=== PATIENT | male | born 1955 | race American Indian/Alaskan Native ===

== ENCOUNTER 2018-09-27 01:06 | Emergency (ER) | payer MEDICAID ==
--- NOTE | 2018-09-27 02:22 | ED PDOC ---
HPI: Altered Mental Status Chief Complaint (Provider): altered mental status History Per: EMS History/Exam Limitations: Clinical Condition Additional Complaint(s): 62 y/o male brought in by EMS for altered mental status. Patient was found walking the streets dishelved, confused. Patient is able to provide his name and states he lives at [facility] in [place]. <Tatiana Sutherland - Last Filed: 09/27/18 05:22> <Radha Miranda - Last Filed: 09/27/18 07:26> Time Seen by Provider: 09/27/18 01:48 Chief Complaint (Nursing): Altered Mental Status Past Medical History Reviewed: Historical Data, Nursing Documentation, Vital Signs Vital Signs: Last Vital Signs Temp 98.1 F 09/27/18 01:11 Pulse 86 09/27/18 01:11 Resp 18 09/27/18 01:11 BP 138/88 09/27/18 01:11 Pulse Ox 100 09/27/18 01:11 - Family History Family History: States: Unknown Family Hx <Tatiana Sutherland - Last Filed: 09/27/18 05:22> Vital Signs: Last Vital Signs Temp 98.3 F 09/27/18 06:35 Pulse 64 09/27/18 06:35 Resp 13 09/27/18 06:35 BP 110/58 L 09/27/18 06:35 Pulse Ox 99 09/27/18 07:18 <Radha Miranda - Last Filed: 09/27/18 07:26> - Allergies Allergies/Adverse Reactions: Allergies Allergy/AdvReac Type Severity Reaction Status Date / Time Unobtainable Allergy Verified 09/27/18 01:49 Review of Systems ROS Statement: Except As Marked, All Systems Reviewed And Found Negative <Tatiana Sutherland - Last Filed: 09/27/18 05:22> Physical Exam - Reviewed Nursing Documentation Reviewed: Yes Vital Signs Reviewed: Yes - Physical Exam Appears: Positive for: Well, Non-toxic, Uncomfortable (unkempt) Head Exam: Positive for: ATRAUMATIC, NORMAL INSPECTION, NORMOCEPHALIC Skin: Positive for: Normal Color Eye Exam: Positive for: Normal appearance ENT: Positive for: Normal ENT Inspection Cardiovascular/Chest: Positive for: Regular Rate, Rhythm Respiratory: Positive for: Normal Breath Sounds Gastrointestinal/Abdominal: Positive for: Normal Exam Back: Positive for: Normal Inspection Extremity: Positive for: Normal ROM Neurologic/Psych: Positive for: Alert, Oriented (x2) <Tatiana Sutherland - Last Filed: 09/27/18 05:22> - Laboratory Results Result Diagrams: 09/27/18 03:40 09/27/18 03:40 - ECG ECG: Positive for: Viewed By Me (reviewed by ED attending) ECG Rhythm: Positive for: Sinus Rhythm O2 Sat by Pulse Oximetry: 100 - Progress ED Course And Treament: Patient agitated, attempting to elope and swinging at staff Security at bedside, de-escalation unsuccessful; patient restrained and medicated for acute agitation/safety -accucheck -cop breaker -ekg -cxr -cbc -cmp -alcohol -urinalysis -urine drug screen -CT head CT SCAN OF THE BRAIN WITHOUT IV CONTRAST CLINICAL INDICATION: Altered mental status. TECHNIQUE: Axial and reformatted sagittal and coronal images of the brain obtained without IV contrast administration. Normal size of the ventricles and extra-axial spaces for the patient's age. Normal white matter tracts of the supratentorial brain. Normal basal ganglia and thalami. Normal brainstem. Normal cerebellum. There is no demonstrated extra-axial, intraparenchymal, or intraventricular hemorrhage. There are no findings of an acute ischemic infarction. Normal calvarium. There is no demonstrated fracture. Normal soft tissue structures. Moderate chronic mucosal inflammatory changes of the visualized paranasal sinuses. IMPRESSION: Normal unenhanced CT scan of the brain. Moderate chronic mucosal inflammatory changes of the visualized paranasal sinuses Kaycee Morrison contacted by charge nurse, who stated no one there overnight who would be able to provide medical history on patient and to call back in am 3:30 Patient sleeping; vitals stable on monitor 5:00 Patient sleeping; vital stable on monitor <Tatiana Sutherland C - Last Filed: 09/27/18 05:22> - Laboratory Results Result Diagrams: 09/27/18 03:40 09/27/18 03:40 Lab Results: Total Bilirubin 0.4 mg/dl (0.2-1.3) 09/27/18 03:40 AST 115 U/L (17-59) H 09/27/18 03:40 ALT 46 U/L (21-72) 09/27/18 03:40 Alkaline Phosphatase 100 U/L (38-126) 09/27/18 03:40 Total Protein 7.6 G/DL (6.3-8.2) 09/27/18 03:40 Albumin 3.9 g/dL (3.5-5.0) 09/27/18 03:40 Globulin 3.8 gm/dL (2.2-3.9) 09/27/18 03:40 Albumin/Globulin Ratio 1.0 (1.0-2.1) 09/27/18 03:40 Urine Color Yellow (YELLOW) 09/27/18 03:40 Urine Clarity Slighty-cloudy (Clear) 09/27/18 03:40 Urine pH 5.0 (5.0-8.0) 09/27/18 03:40 Ur Specific [place] 1.031 (1.003-1.030) H 09/27/18 03:40 Urine Protein 30 mg/dL (NEGATIVE) 09/27/18 03:40 Urine Glucose (UA) Neg mg/dL (NEGATIVE) 09/27/18 03:40 Urine Ketones Trace mg/dL (NEGATIVE) 09/27/18 03:40 Urine Blood Negative (NEGATIVE) 09/27/18 03:40 Urine Nitrate Negative (NEGATIVE) 09/27/18 03:40 Urine Bilirubin Negative (NEGATIVE) 09/27/18 03:40 Urine Urobilinogen 2.0 mg/dL (0.2-1.0) 09/27/18 03:40 Ur Leukocyte Esterase Neg Willy/uL (Negative) 09/27/18 03:40 Urine RBC (Auto) 1 /hpf (0-3) 09/27/18 03:40 Urine Microscopic WBC 1 /hpf (0-5) 09/27/18 03:40 Hyaline Casts 3-5 /hpf (0-2) H 09/27/18 03:40 <Radha Miranda - Last Filed: 09/27/18 07:26> Medical Decision Making Medical Decision Makin Patient signed out to Dr. Rendon, pending crisis evaluation, return to baseline and confirm safe return to housing facility in [place]. Scribe Attestation: Documented by Norma Calix, acting as a scribe for Radha Miranda MD. Provider Scribe Attestation: All medical record entries made by the Scribe were at my direction and personally dictated by me. I have reviewed the chart and agree that the record accurately reflects my personal performance of the history, physical exam, medical decision making, and the department course for this patient. I have also personally directed, reviewed, and agree with the discharge instructions and disposition. <Radha Miranda - Last Filed: 09/27/18 07:26> Disposition - Disposition Disposition Time: 06:00 Patient Signed Over To: Radha Miranda Handoff Comments: pending crisis eval <Tatiana Sutherland - Last Filed: 09/27/18 05:22> <Radha Miranda - Last Filed: 09/27/18 07:26> - Clinical Impression Clinical Impression: Altered mental status - Disposition Condition: STABLE Forms: [employer] (Albanian)
[2018-09-27 04:00] LABS: BASO % 0.4 % (0.0-2.0); EOS % 0.6 % (0.0-4.0); HEMOGLOBIN 11.8 g/dL (12.0-18.0); LYMPH # 0.9 K/uL (1.0-4.3); MEAN CELL VOLUME 83.1 fl (80.0-94.0); MEAN CORPUSCULAR HEMOGLOBIN 27.5 pg (27.0-31.0); MEAN CORPUSCULAR HGB CONC 33.1 g/dL (33.0-37.0); MEAN PLATELET VOLUME 7.9 fl (7.2-11.7); MONO # 0.5 K/uL (0.0-0.8); MONO % 8.2 % (0.0-10.0); NEUT # 4.3 K/uL (1.8-7.0); NEUT % 74.8 % (50.0-75.0); NRBC % 0.1 % (0.0-0.0); RBC 4.3 Mil/uL (4.40-5.90); RED CELL DISTRIBUTION WIDTH 13.6 % (11.5-14.5); WHITE BLOOD COUNT 5.7 K/uL (4.8-10.8)
[2018-09-27 04:11] LABS: ALBUMIN 3.9 g/dL (3.5-5.0); ALT/SGPT 46 U/L (21-72); AST/SGOT 115 U/L (17-59); BLOOD UREA NITROGEN 24 mg/dl (9-20); CALCIUM 9.3 mg/dL (8.4-10.2); GFR NON-AFRICAN AMERICAN > 60
[2018-09-27 04:25] LABS: URINE BILIRUBIN NEGATIVE (NEGATIVE); URINE BLOOD NEGATIVE (NEGATIVE); URINE CLARITY SLIGHTY-CLOUDY (Clear); URINE COLOR YELLOW (YELLOW); URINE GLUCOSE (UA) NEG (NEGATIVE); URINE LEUKOCYTE ESTERASE NEG Leu/uL (Negative); URINE PROTEIN 30 mg/dL (NEGATIVE)
[2018-09-27 04:28] LABS: BARBITURATES, UR NEGATIVE (NEGATIVE); BENZODIAZEPINES, UR NEGATIVE (NEGATIVE); OPIATES, UR NEGATIVE (NEGATIVE); PHENCYCLIDINE, UR NEGATIVE (NEGATIVE)
--- NOTE | 2018-09-27 07:18 | ED PDOC ---
- Laboratory Results Result Diagrams: 09/27/18 03:40 09/27/18 03:40 Lab Results: Total Bilirubin 0.4 mg/dl (0.2-1.3) 09/27/18 03:40 AST 115 U/L (17-59) H 09/27/18 03:40 ALT 46 U/L (21-72) 09/27/18 03:40 Alkaline Phosphatase 100 U/L (38-126) 09/27/18 03:40 Total Protein 7.6 G/DL (6.3-8.2) 09/27/18 03:40 Albumin 3.9 g/dL (3.5-5.0) 09/27/18 03:40 Globulin 3.8 gm/dL (2.2-3.9) 09/27/18 03:40 Albumin/Globulin Ratio 1.0 (1.0-2.1) 09/27/18 03:40 Urine Color Yellow (YELLOW) 09/27/18 03:40 Urine Clarity Slighty-cloudy (Clear) 09/27/18 03:40 Urine pH 5.0 (5.0-8.0) 09/27/18 03:40 Ur Specific [place] 1.031 (1.003-1.030) H 09/27/18 03:40 Urine Protein 30 mg/dL (NEGATIVE) 09/27/18 03:40 Urine Glucose (UA) Neg mg/dL (NEGATIVE) 09/27/18 03:40 Urine Ketones Trace mg/dL (NEGATIVE) 09/27/18 03:40 Urine Blood Negative (NEGATIVE) 09/27/18 03:40 Urine Nitrate Negative (NEGATIVE) 09/27/18 03:40 Urine Bilirubin Negative (NEGATIVE) 09/27/18 03:40 Urine Urobilinogen 2.0 mg/dL (0.2-1.0) 09/27/18 03:40 Ur Leukocyte Esterase Neg Willy/uL (Negative) 09/27/18 03:40 Urine RBC (Auto) 1 /hpf (0-3) 09/27/18 03:40 Urine Microscopic WBC 1 /hpf (0-5) 09/27/18 03:40 Hyaline Casts 3-5 /hpf (0-2) H 09/27/18 03:40 - ECG O2 Sat by Pulse Oximetry: 99 (RA) Pulse Ox Interpretation: Normal Medical Decision Making Medical Decision Makin Patient endorsed by Dr. Miranda, pending crisis evaluation, return to baseline and confirm safe return to housing facility in [place]. 17:[address] Navarrete. Pending [facility] [place]. Scribe Attestation: Documented by Norma Calix, acting as a scribe for Galilea Rendon MD. Provider Scribe Attestation: All medical record entries made by the Scribe were at my direction and personally dictated by me. I have reviewed the chart and agree that the record accurately reflects my personal performance of the history, physical exam, medical decision making, and the department course for this patient. I have also personally directed, reviewed, and agree with the discharge instructions and disposition. Disposition - Clinical Impression Clinical Impression: Dementia with behavioral disturbance - POA Present On Arrival: None - Disposition Disposition: Transfer of Care Disposition Time: 16:00 Condition: STABLE Additional Instructions: FOLLOW-UP WITH PMD WITHIN 2 DAYS FOR REEVALUATION. Instructions: Dementia (Including Alzheimer Disease)
--- NOTE | 2018-09-27 07:48 | RAD ---
Date of service: 09/27/2018 HISTORY: ams COMPARISON: No prior. FINDINGS: LUNGS: No active pulmonary disease. PLEURA: No significant pleural effusion identified, no pneumothorax apparent. CARDIOVASCULAR: No aortic atherosclerotic calcification present. Normal cardiac size. No pulmonary vascular congestion. OSSEOUS STRUCTURES: No significant abnormalities. VISUALIZED UPPER ABDOMEN: Normal. OTHER FINDINGS: None. IMPRESSION: No acute cardiopulmonary disease appreciated.
--- NOTE | 2018-09-27 08:49 | CARD ---
APPROVED REPORT Date of service: 09/27/2018 EKG Measurement Heart [id number] <Conclusion> Sinus rhythm with premature atrial complexes Otherwise normal ECG
[2018-09-27 13:07] VITALS: RESP 16
--- NOTE | 2018-09-27 14:18 | CT ---
Date of service: 09/27/2018 PROCEDURE: CT HEAD WITHOUT CONTRAST. HISTORY: AMS COMPARISON: None available. TECHNIQUE: Axial computed tomography images were obtained through the head/brain without intravenous contrast. Radiation dose: Total exam DLP = 1232.74 mGy-cm. This CT exam was performed using one or more of the following dose reduction techniques: Automated exposure control, adjustment of the mA and/or kV according to patient size, and/or use of iterative reconstruction technique. FINDINGS: HEMORRHAGE: No intracranial hemorrhage. BRAIN: Good corticomedullary differentiation is seen. Proportional, diffuse expansion of the ventriculosulcal and cisternal spaces is appreciated with white matter lucency compatible with diffuse cerebral atrophy and chronic microangiopathy. No suspicious extra-axial fluid collection is identified and the midline brain anatomy appears grossly nonfocal as imaged. There is no mass effect throughout. VENTRICLES: Unremarkable. No hydrocephalus. CALVARIUM: Unremarkable. PARANASAL SINUSES: Multifocal sinusitis identified affecting bilateral ethmoid, maxillary and right sphenoid sinuses and minimally affecting the bilateral frontal sinuses. MASTOID AIR CELLS: Unremarkable as visualized. No inflammatory changes. OTHER FINDINGS: None. IMPRESSION: Stable age-appropriate age related neuro degenerative changes are identified without acute intracranial hemorrhage, mass effect or hydrocephalus. No suspicious extra-axial fluid collection is identified. Incidental, pansinusitis variable. Concordant preliminary report from Danny, 09/27/2017 4:15 a.m..
--- NOTE | 2018-09-27 18:18 | ED PDOC ---
- Laboratory Results Result Diagrams: 09/27/18 03:40 09/27/18 03:40 Lab Results: Total Bilirubin 0.4 mg/dl (0.2-1.3) 09/27/18 03:40 AST 115 U/L (17-59) H 09/27/18 03:40 ALT 46 U/L (21-72) 09/27/18 03:40 Alkaline Phosphatase 100 U/L (38-126) 09/27/18 03:40 Total Protein 7.6 G/DL (6.3-8.2) 09/27/18 03:40 Albumin 3.9 g/dL (3.5-5.0) 09/27/18 03:40 Globulin 3.8 gm/dL (2.2-3.9) 09/27/18 03:40 Albumin/Globulin Ratio 1.0 (1.0-2.1) 09/27/18 03:40 Urine Color Yellow (YELLOW) 09/27/18 03:40 Urine Clarity Slighty-cloudy (Clear) 09/27/18 03:40 Urine pH 5.0 (5.0-8.0) 09/27/18 03:40 Ur Specific [place] 1.031 (1.003-1.030) H 09/27/18 03:40 Urine Protein 30 mg/dL (NEGATIVE) 09/27/18 03:40 Urine Glucose (UA) Neg mg/dL (NEGATIVE) 09/27/18 03:40 Urine Ketones Trace mg/dL (NEGATIVE) 09/27/18 03:40 Urine Blood Negative (NEGATIVE) 09/27/18 03:40 Urine Nitrate Negative (NEGATIVE) 09/27/18 03:40 Urine Bilirubin Negative (NEGATIVE) 09/27/18 03:40 Urine Urobilinogen 2.0 mg/dL (0.2-1.0) 09/27/18 03:40 Ur Leukocyte Esterase Neg Willy/uL (Negative) 09/27/18 03:40 Urine RBC (Auto) 1 /hpf (0-3) 09/27/18 03:40 Urine Microscopic WBC 1 /hpf (0-5) 09/27/18 03:40 Hyaline Casts 3-5 /hpf (0-2) H 09/27/18 03:40 - ECG O2 Sat by Pulse Oximetry: 99 (RA) Medical Decision Making Medical Decision Makin:00 Patient endorsed to this provider from Dr. Rendon. [facility] screen. Time: 2300 Evaluated by [facility] [place] cleared for discharge. Pending transport back to long-term. Scribe Attestation: Documented by Hi Lenz acting as a scribe for Stacie Navarrete MD. Provider Scribe Attestation: All medical record entries made by the Scribe were at my direction and personally dictated by me. I have reviewed the chart and agree that the record accurately reflects my personal performance of the history, physical exam, medical decision making, and the department course for this patient. I have also personally directed, reviewed, and agree with the discharge instructions and disposition. Disposition - Clinical Impression Clinical Impression: Dementia with behavioral disturbance - POA Present On Arrival: None - Disposition Disposition: Routine/Home Disposition Time: 23:13 Condition: STABLE Additional Instructions: FOLLOW-UP WITH PMD WITHIN 2 DAYS FOR REEVALUATION. Instructions: Dementia (Including Alzheimer Disease) Forms: [employer] (Romanian)
--- NOTE | 2018-09-27 23:22 | ED PDOC ---
- Laboratory Results Result Diagrams: 09/27/18 03:40 09/27/18 03:40 Lab Results: Total Bilirubin 0.4 mg/dl (0.2-1.3) 09/27/18 03:40 AST 115 U/L (17-59) H 09/27/18 03:40 ALT 46 U/L (21-72) 09/27/18 03:40 Alkaline Phosphatase 100 U/L (38-126) 09/27/18 03:40 Total Protein 7.6 G/DL (6.3-8.2) 09/27/18 03:40 Albumin 3.9 g/dL (3.5-5.0) 09/27/18 03:40 Globulin 3.8 gm/dL (2.2-3.9) 09/27/18 03:40 Albumin/Globulin Ratio 1.0 (1.0-2.1) 09/27/18 03:40 Urine Color Yellow (YELLOW) 09/27/18 03:40 Urine Clarity Slighty-cloudy (Clear) 09/27/18 03:40 Urine pH 5.0 (5.0-8.0) 09/27/18 03:40 Ur Specific [place] 1.031 (1.003-1.030) H 09/27/18 03:40 Urine Protein 30 mg/dL (NEGATIVE) 09/27/18 03:40 Urine Glucose (UA) Neg mg/dL (NEGATIVE) 09/27/18 03:40 Urine Ketones Trace mg/dL (NEGATIVE) 09/27/18 03:40 Urine Blood Negative (NEGATIVE) 09/27/18 03:40 Urine Nitrate Negative (NEGATIVE) 09/27/18 03:40 Urine Bilirubin Negative (NEGATIVE) 09/27/18 03:40 Urine Urobilinogen 2.0 mg/dL (0.2-1.0) 09/27/18 03:40 Ur Leukocyte Esterase Neg Willy/uL (Negative) 09/27/18 03:40 Urine RBC (Auto) 1 /hpf (0-3) 09/27/18 03:40 Urine Microscopic WBC 1 /hpf (0-5) 09/27/18 03:40 Hyaline Casts 3-5 /hpf (0-2) H 09/27/18 03:40 - ECG O2 Sat by Pulse Oximetry: 99 (RA) Pulse Ox Interpretation: Normal Medical Decision Making Medical Decision Making: Time: [address] Navarrete, pending [facility] evaluation. 700 Pt comfortable and stable. Pending arrangements for transportation. Scribe Attestation: Documented by Krishna Mercer acting as a scribe for Radha Miranda. Provider Scribe Attestation: All medical record entries made by the Scribe were at my direction and personally dictated by me. I have reviewed the chart and agree that the record accurately reflects my personal performance of the history, physical exam, medical decision making, and the department course for this patient. I have also personally directed, reviewed, and agree with the discharge instructions and disposition. Disposition - Clinical Impression Clinical Impression: Dementia with behavioral disturbance - POA Present On Arrival: None - Disposition Disposition: Routine/Home Disposition Time: 07:00 (pending transfer home) Condition: STABLE Additional Instructions: FOLLOW-UP WITH PMD WITHIN 2 DAYS FOR REEVALUATION. Instructions: Dementia (Including Alzheimer Disease)
[2018-09-28 07:14] VITALS: TEMP 98.2
--- NOTE | 2018-09-28 13:05 | ED PDOC ---
- Laboratory Results Result Diagrams: 09/27/18 03:40 09/27/18 03:40 Lab Results: Total Bilirubin 0.4 mg/dl (0.2-1.3) 09/27/18 03:40 AST 115 U/L (17-59) H 09/27/18 03:40 ALT 46 U/L (21-72) 09/27/18 03:40 Alkaline Phosphatase 100 U/L (38-126) 09/27/18 03:40 Total Protein 7.6 G/DL (6.3-8.2) 09/27/18 03:40 Albumin 3.9 g/dL (3.5-5.0) 09/27/18 03:40 Globulin 3.8 gm/dL (2.2-3.9) 09/27/18 03:40 Albumin/Globulin Ratio 1.0 (1.0-2.1) 09/27/18 03:40 Urine Color Yellow (YELLOW) 09/27/18 03:40 Urine Clarity Slighty-cloudy (Clear) 09/27/18 03:40 Urine pH 5.0 (5.0-8.0) 09/27/18 03:40 Ur Specific [place] 1.031 (1.003-1.030) H 09/27/18 03:40 Urine Protein 30 mg/dL (NEGATIVE) 09/27/18 03:40 Urine Glucose (UA) Neg mg/dL (NEGATIVE) 09/27/18 03:40 Urine Ketones Trace mg/dL (NEGATIVE) 09/27/18 03:40 Urine Blood Negative (NEGATIVE) 09/27/18 03:40 Urine Nitrate Negative (NEGATIVE) 09/27/18 03:40 Urine Bilirubin Negative (NEGATIVE) 09/27/18 03:40 Urine Urobilinogen 2.0 mg/dL (0.2-1.0) 09/27/18 03:40 Ur Leukocyte Esterase Neg Willy/uL (Negative) 09/27/18 03:40 Urine RBC (Auto) 1 /hpf (0-3) 09/27/18 03:40 Urine Microscopic WBC 1 /hpf (0-5) 09/27/18 03:40 Hyaline Casts 3-5 /hpf (0-2) H 09/27/18 03:40 - ECG O2 Sat by Pulse Oximetry: 97 Disposition - Clinical Impression Clinical Impression: Dementia with behavioral disturbance - POA Present On Arrival: None - Disposition Disposition: Routine/Home Disposition Time: 13:05 Condition: STABLE Additional Instructions: FOLLOW-UP WITH PMD WITHIN 2 DAYS FOR REEVALUATION. Instructions: Dementia (Including Alzheimer Disease) Addendum Addendum: 09/28/18 07:[address] Pt signed out [address] Miranda pending transfer to [place].
[2018-09-28 13:37] VITALS: BP 138/72; PULSE 78
[2018-09-30 15:50] VITALS: O2SAT 97
== END 2018-09-28 13:30 | disposition home or self-care (01) ==
LOC: H.ER 01:06
DX: F03.91 Unspecified dementia, unspecified severity, with behavioral disturbance (principal); I49.1 Atrial premature depolarization; J32.4 Chronic pansinusitis
CPT/HCPCS: 70450; 71045; 80053; 80320; 80324; 80345; 80346; 80349; 80353; 80358; 80361; 81003; 82948; 83992; 85025; 87390; 93005; 96372; 99285; J1630; J2060